=== PATIENT | male | born 1985 | race Caucasian/White ===

== ENCOUNTER 2024-06-02 00:43 | Emergency (ER) | payer BC, SELFPAY ==
[2024-06-02 00:46] VITALS: BP 165/100
[2024-06-02 02:06] VITALS: BMI 30.7
[2024-06-02 02:07] VITALS: BP 141/84
[2024-06-02] MEDS: NSS 1000 IV (02:25)
[2024-06-02] MEDS: ZOFRAN 4 MG IV (02:25)
[2024-06-02 02:27] LABS: % Basophils 0.5 % (0-2); % Eosinophils 0.2 % (0-6); % Immature Granulocytes 0.6 % (0-0.5); % Lymphocytes 25.1 % (20.5-51.1); % Monocytes 14.1 % (1.7-9.3); % Neutrophils 59.5 % (42.2-75.2); Absolute Lymphocytes 1.6 10^3/uL (1.2-3.4); Absolute Monocytes 0.9 10^3/uL (0.1-0.6); Absolute Neutrophils 3.9 10^3/uL (1.4-6.5); Hematocrit 35.3 % (39.0-52.0); Hemoglobin 12.6 g/dL (13.0-18.0); Mean Corp Hgb Conc. 35.7 g/dL (33.0-37.0); Mean Corpuscular Hgb 29.6 pg (27.0-31.0); Mean Corpuscular Volume 82.9 fL (80.0-94.0); Mean Platelet Volume 9.9 fL (7.4-10.4); Nucleated Red Blood Cells % 0 % (-); Platelet Count 186 10^3/uL (130-400); Red Blood Cell Count 4.26 10^6/uL (4.70-6.10); Red Cell Dist. Width 12.5 % (11.5-14.5); White Blood Cell Count 6.5 10^3/uL (4.8-10.8)
--- NOTE | 2024-06-02 02:33 | ED.GENMED ---
History of Present Illness
<ANGELITA Guillaume (Lenka) - Last Filed: 06/02/24 02:53>
General
Chief Complaint: Dehydration Symptoms
Source: patient
Exam Limitations: none
Time Seen by Provider: 06/02/24 02:18
Nursing documentation reviewed up to this point in time: agreed with except (tested positive for COVID Sunday (05/30))
History of Present Illness
History of Present Illness:
Pt is a 38yo male with no pertinent PMHx who presents to the ED with concerns of NBNB N/V and decreased PO intake after being diagnosed with COVID x 48hrs. Pt states Sunday (05/30) he felt febrile and general malaise and tested positive for
COVID. He picked up a script for Paxlovid and since initiating it Sunday, he has not been able to keep fluids or food down. He has been able to keep the Paxlovid pill down. Also having loose watery stools, 3+ today. Endorses chest
tightness, but denies chest pain, dyspnea, or pain with inspiration. Having occasional 'heavy' productive cough and rhinorrhea. Dizziness with ambulation, no lightheadedness when sitting. States he feels agitated and anxious.
Pt denies smoking, alcohol use, or drug use.
No daily medications.
Past History
<Mary Jane Das) ANGELITA Salinas - Last Filed: 06/02/24 02:53>
Past History
ED Past Medical History: Other (perirectal abscess)
ED Past Surgical History: Other (perirectal abscess I&D 05/23/18)
Social History
Tobacco: Non-smoker
Alcohol: None
Drug: None
Personal:
Living: with family
Employment: Employed
Family History
Family History: Other (noncontributory)
Phy Exam
<ANGELITA Guillaume (Lenka) - Last Filed: 06/02/24 02:53>
General Physical Exam
General Presentation: no apparent distress
General age: appears stated age
General Skin: warm and dry
General Habitus: normal
General Mental: anxious and tearful
General Hydration: appears well hydrated
ENT Exam
ENT Exam: TM's normal, pharynx normal, neck supple and lymphnodes (nontender, non-palpable)
Eye Exam
Eye Exam: conjunctiva normal
Cardiovascular Exam
Cardiovascular Exam: regular rate/rhythm, no edema, no gallop, no murmur and normal peripheral pulses
Pulmonary Exam
Pulmonary Exam: lungs clear, no respiratory distress, no rales, chest non tender, no rhonchi and no wheezing
Gastrointestinal Exam
Gastrointestinal Exam: normal bowel sounds, non tender, soft and non distended
Neurological Exam
Neurological Exam: alert, oriented x3 and speech normal
Course
<Mary Jane Salinas (Lenka)[facility] - Last Filed: 06/02/24 02:53>
Orders/Labs/Results
Orders:
Orders
06/02/24 02:19
0.9% Sodium Chloride 1000 ml [Nss] 1,000 ml IV BOLUS
Ondansetron Injectable [Zofran] 4 mg IV NOW STA
06/02/24 02:21
CMP [Comprehensive Metabolic Panel] Urgent
Complete Blood Count/With Diff Urgent
06/02/24 02:25
CXR2 [CR Chest - 2 Views ] Urgent
Comment:
Reason For Exam: covid +
06/02/24 03:09
Lorazepam [Ativan] 0.5 mg PO NOW STA
06/02/24 03:20
Azithromycin [Zithromax] 500 mg PO NOW STA
Abnormal Lab Results
06/02/24
02:21
RBC 4.26 L 10^6/uL
(4.70-6.10)
Hgb 12.6 L g/dL
(13.0-18.0)
Hct 35.3 L %
(39.0-52.0)
Absolute Monos (auto) 0.9 H 10^3/uL
(0.1-0.6)
Immature Gran % 0.6 H %
(0-0.5)
Monocytes % 14.1 H %
(1.7-9.3)
Sodium 133 L mmol/L
(135-145)
Chloride 97 L mmol/L
(98-107)
06/02/24 02:21
06/02/24 02:21
Vital Signs
Initial and Last Documented VS:
Initial Vital Signs
Temp Pulse Resp BP Pulse Ox
98 F 80 24 165/100 100
06/02/24 00:46 06/02/24 00:46 06/02/24 00:46 06/02/24 00:46 06/02/24 00:46
Last Documented Vital Signs
Temp Pulse Resp BP Pulse Ox
98 F 70 18 141/84 99
06/02/24 00:46 06/02/24 02:07 06/02/24 02:07 06/02/24 02:07 06/02/24 02:07
<Denis Webster, DO - Last Filed: 06/02/24 03:27>
Orders/Labs/Results
Orders:
Orders
06/02/24 02:19
0.9% Sodium Chloride 1000 ml [Nss] 1,000 ml IV BOLUS
Ondansetron Injectable [Zofran] 4 mg IV NOW STA
06/02/24 02:21
CMP [Comprehensive Metabolic Panel] Urgent
Complete Blood Count/With Diff Urgent
06/02/24 02:25
CXR2 [CR Chest - 2 Views ] Urgent
Comment:
Reason For Exam: covid +
06/02/24 03:09
Lorazepam [Ativan] 0.5 mg PO NOW STA
06/02/24 03:20
Azithromycin [Zithromax] 500 mg PO NOW STA
Abnormal Lab Results
06/02/24
02:21
RBC 4.26 L 10^6/uL
(4.70-6.10)
Hgb 12.6 L g/dL
(13.0-18.0)
Hct 35.3 L %
(39.0-52.0)
Absolute Monos (auto) 0.9 H 10^3/uL
(0.1-0.6)
Immature Gran % 0.6 H %
(0-0.5)
Monocytes % 14.1 H %
(1.7-9.3)
Sodium 133 L mmol/L
(135-145)
Chloride 97 L mmol/L
(98-107)
06/02/24 02:21
06/02/24 02:21
Vital Signs
Initial and Last Documented VS:
Initial Vital Signs
Temp Pulse Resp BP Pulse Ox
98 F 80 24 165/100 100
06/02/24 00:46 06/02/24 00:46 06/02/24 00:46 06/02/24 00:46 06/02/24 00:46
Last Documented Vital Signs
Temp Pulse Resp BP Pulse Ox
98 F 70 18 141/84 99
06/02/24 00:46 06/02/24 02:07 06/02/24 02:07 06/02/24 02:07 06/02/24 02:07
<ANGELITA Guillaume (Lenka) - Last Filed: 06/02/24 02:53>
*Critical Care Note
Total Time (30-74mins, 75-104mins- exclusive of procedures): Not Applicable
ED Attending Note
<ANGELITA Guillaume (Lenka) - Last Filed: 06/02/24 02:53>
-
Portions of this chart may have been created with voice recognition software.� Occasional wrong word or��sound alike� substitutions may have occurred due to the inherent limitations of voice recognition software.
<Denis Webster DO - Last Filed: 06/02/24 03:27>
ED Attending Note
Patient seen and examined by attending physician: Yes
I performed the substantive portion of visit, reviewed & personally made and approve the management plan that is documented in note by myself or TYLER.: Yes
ED Attending Note:
38-year-old male presents after testing positive for COVID yesterday. Started on Paxlovid. States he has been able to keep the medicine down but has not been able to keep liquids down. He feels dehydrated. He is anxious because his was
recently diagnosed with breast cancer and has a small child at home to care for her. Patient has been having nonbloody loose stools. Patient was seen in conjunction with the PA student. I have reviewed and agree with the history and treatment
plan presented. On my independent physical exam, patient is awake, alert, and oriented x3, minimal acute distress. Heart is regular rate rhythm. Lungs are clear to auscultation bilaterally without wheezes rales or rhonchi. Abdomen is soft and
nontender. Chest x-ray shows possibility of a right infiltrate. Will start on azithromycin.
Discharge Plan
Departure
Patient Disposition: Home (Routine Discharge)
Date of Disposition: 06/02/24
Time of Disposition: 03:21
Patient with high blood pressure during this ER visit?: Yes
Condition: Good
Discharge Problem:
COVID-19, Pneumonia
Instructions: Viral Syndrome (DC), COVID-19 ED, BLOOD PRESSURE, Dehydration, Adult (DC)
Prescriptions:
New
azithromycin 250 mg tablet
250 mg PO DAILY 4 Days Qty: 4 0RF
metoclopramide HCl [Reglan] 10 mg tablet
10 mg PO ACHS PRN (Reason: nausea and vomiting) Qty: 10 0RF
Referrals:
Omar Moreau MD [Family Provider] -
Activity Restrictions/Additional Instructions:
Your prescriptions were transmitted to the pharmacy you requested.
It was a pleasure meeting you and taking part in your care. We hope for your continued healing and wellness.
Please read discharge instructions in their entirety. However, they are for general education and may not describe your exact diagnosis at discharge. Information on your ER visit and medical conditions were discussed with you along with appropriate
follow up information...
If indicated, please take your medications as instructed and indicated on discharge paperwork.
Please schedule a follow up appointment as directed. Call to schedule an appointment
Please return to the emergency department with ANY change in, persisting, or worsening of symptoms. If any of your symptoms do not improve, or persist, or become more severe within 6-12 hours, please return to the emergency department for further
care.
Please return to the emergency department if you develop a headache, neck pain/stiffness, fever greater than 100.4F, chest pain, shortness of breath, persistent nausea, vomiting, slurred speech, difficulty walking, numbness/tingling, weakness, signs
of infection or any other symptoms that are worrisome to you.
If you have any questions or concerns please do not hesitate to call the Hospital at or E-mail me directly at [email or web address]
Interventions
Interventions:
*Risk Screen - Suicide Last Done: 06/02/24 00:46
*Neglect/Abuse Screening Last Done: 06/02/24 00:46
ED- Fall Risk Assessment Last Done: 06/02/24 02:30
*ED COVID-19 Vaccine History Last Done: 06/02/24 02:17
ED- Cardiac Assessment Last Done: 06/02/24 02:30
ED- Neurological Assessment Last Done: 06/02/24 02:30
ED- Pulmonary Assessment Last Done: 06/02/24 02:30
Discharge Date and Time
Print Language: ALBANIAN
[2024-06-02 02:46] LABS: ALT (SGPT) 40 U/L (0-50); AST (SGOT) 40 U/L (17-59); Albumin 4.6 g/dl (3.5-5.0); Alkaline Phosphatase 70 U/L (38-126); Blood Urea Nitrogen 11 mg/dl (9-20); Carbon Dioxide 27 mmol/L (22-30); Chloride 97 mmol/L (98-107); Estimated Creatinine Clearance 124 ml/min; Glucose 96 mg/dl (70-99); Sodium 133 mmol/L (135-145); Total Bilirubin 0.6 mg/dl (0.2-1.3); Total Protein 6.8 g/dl (6.3-8.2); eGFR > 60.00
[2024-06-02 03:04] VITALS: BP 130/83
[2024-06-02] MEDS: ATIVAN 0.5 MG PO (03:19)
[2024-06-02] MEDS: ZITHROMAX 500 MG PO (03:26)
== END 2024-06-02 03:32 | disposition home or self-care (01) ==
LOC: EMR 00:43
PROVIDERS: EMERGENCY PHYSICIAN Student in an Organized Health Care Education/Training Program; FAMILY PHYSICIAN Internal Medicine
DX: U07.1 COVID-19 (principal); J12.82 Pneumonia due to coronavirus disease 2019
CPT/HCPCS: 99283; 96374; 96361; 71046; 80053; 85025; 93005

== ENCOUNTER 2025-05-28 00:59 | Day surgery (SDC) | payer BC, SELFPAY ==
[2025-05-27] VITALS (10 sets, daily range): BP systolic 126–145; BP diastolic 68–86; BMI 27.8
[2025-05-27] MEDS: ZOFRAN ODT (ORALLY DISINTEGRATING) 4 MG PO (15:59)
[2025-05-27 16:16] LABS: Hematocrit 39.2 % (39.0-52.0); Hemoglobin 13.3 g/dL (13.0-18.0); Mean Corp Hgb Conc. 33.9 g/dL (33.0-37.0); Mean Corpuscular Volume 86.0 fL (80.0-94.0); Nucleated Red Blood Cells % 0 % (-); Platelet Count 189 10^3/uL (130-400); Red Cell Dist. Width 13.0 % (11.5-14.5)
[2025-05-27 16:26] LABS: ALT (SGPT) 27 U/L (0-50); AST (SGOT) 27 U/L (17-59); Albumin 4.8 g/dl (3.5-5.0); Alkaline Phosphatase 66 U/L (38-126); Blood Urea Nitrogen 13 mg/dl (9-20); Calcium 8.9 mg/dl (8.4-10.2); Carbon Dioxide 30 mmol/L (22-30); Chloride 105 mmol/L (98-107); Glucose 98 mg/dl (70-99); Lipase 53 U/L (23-300); Potassium 3.9 mmol/L (3.5-5.1); Sodium 142 mmol/L (135-145); Total Protein 7.3 g/dl (6.3-8.2); eGFR > 60.00
[2025-05-27 16:37] LABS: Troponin I < 0.012 ng/ml
[2025-05-27] MEDS: TORADOL 15 MG IV (20:30)
[2025-05-27] MEDS: NSS 1000 IV (20:30)
[2025-05-27] MEDS: PROTONIX IV 40 MG IV (20:30)
--- NOTE | 2025-05-27 20:39 | ED.GENMED ---
History of Present Illness
<Philip Lebron MD - Last Filed: 05/27/25 22:01>
General
Chief Complaint: Abdominal Pain
Source: patient
Exam Limitations: none
Time Seen by Provider: 05/27/25 19:42
Nursing documentation reviewed up to this point in time: agreed with
History of Present Illness
History of Present Illness:
Patient presents to ED secondary to persistent abdominal pain associated with nausea and vomiting, along with 1 episode of diarrhea today. Abdominal pain described as sharp, diffuse, without any alleviating or exacerbating factors. Denies fever or
chills. Denies trauma. Denies recent illness. Denies recent change in medications or diet. Denies sick contact. Denies previous history of similar symptoms. Patient smokes, but denies drinking alcohol.
Past History
<Philip Lebron MD - Last Filed: 05/27/25 22:01>
Past History
ED Past Medical History: Other (perirectal abscess)
ED Past Surgical History: Other (perirectal abscess I&D 05/23/18)
Social History
Tobacco: Non-smoker
Alcohol: None
Drug: None
Personal:
Living: with family
Employment: Employed
Family History
Family History: Other (noncontributory)
Review of Systems
<Philip Lebron MD - Last Filed: 05/27/25 22:01>
Review of Systems
Allergies reviewed?: Yes
All Other Systems: ROS reviewed and negative except as documented in HPI and ROS
Constitutional: Reports no symptoms; Denies fever
Cardiac: Reports no symptoms
ABD/GI: Reports abdominal pain, nausea, vomiting and diarrhea
Musculoskeletal: Reports no symptoms
Skin: Reports no symptoms
Neurological: Reports no symptoms
Phy Exam
<Philip Lebron MD - Last Filed: 05/27/25 22:01>
Physical Exam
Physical Exam:
Physical Exam
General: mild distress, not acutely ill. afebrile
Head: nc/at. eomi
Neck: supple. no meningeal signs.
Heart: s1/s2 regular rate and rhythm
Lungs: no acute respiratory distress. clear bilaterally
Abdomen: normal bowel sounds. moderate epigastric/RUQ tenderness to palpation
Neuro: alert and oriented x 3. no focal neurological deficits
Skin: no rash
Psychiatric: well kept. interactive and cooperative
Extremities: no edema. no calf tenderness.
Course
<Philip Lebron MD - Last Filed: 05/27/25 22:01>
Orders/Labs/Results
Orders:
Orders
05/27/25 15:56
ECG [Electrocardiogram (*1)] Urgent
Reason for Study: Chest Pain
Other Reason for Exam: epigastric pain
EKG- Treatment ONCE
05/27/25 15:58
Ondansetron Orally Disint [Zofran Odt (Orally Disintegrating)] 4 mg PO NOW STA
05/27/25 15:59
Ondansetron Orally Disint [Zofran Odt (Orally Disintegrating)] 4 mg .ROUTE .STK-MED ONE
05/27/25 16:05
Complete Blood Count/With Diff Urgent
Comprehensive Metabolic Panel Urgent
Lipase Urgent
Troponin I Urgent
05/27/25 20:23
0.9% Sodium Chloride 1000 ml [Nss] 1,000 ml IV BOLUS
Ketorolac [Toradol] 15 mg IV NOW STA
Pantoprazole [Protonix IV] 40 mg IV NOW STA
05/27/25 20:24
US Abdomen Complete/Upper Urgent
Comment:
Reason For Exam: epigastric/RUQ pain
05/27/25 20:55
HYDROmorphone [Dilaudid] 0.5 mg IV NOW STA
05/27/25 21:43
Urinalysis Reflex To Culture Urgent
Date Specimen was Collected: 05/27/25
Time Specimen was Collected: 21:42
Urine Microscopic Reflex Cult Urgent
05/27/25 22:12
CT Abd/pelvis W Iv Cont Urgent
Comment:
Reason For Exam: right sided abdominal pain
05/27/25 22:20
HYDROmorphone [Dilaudid] 0.5 mg IV NOW STA
05/27/25 23:47
Piperacillin/Tazo 4.5 Gram [Zosyn] 4.5 gram in 100 ml IV NOW
05/27/25 23:56
HYDROmorphone [Dilaudid] 1 mg IV NOW STA
05/27/25 23:57
Lactated Ringers [Lr] 1,000 ml IV BOLUS
Abnormal Lab Results
05/27/25 05/27/25
16:05 21:43
RBC 4.56 L 10^6/uL
(4.70-6.10)
Absolute Neuts (auto) 6.8 H 10^3/uL
(1.4-6.5)
Ur Occult Blood Reflex 1+ A
(Negative)
Urine RBC 7-10 A /HPF
(0-2)
Urine Bacteria (Reflex) Few A
(Negative)
Urine Albumin (Reflex) 1+ A
(Neg - Trace)
05/27/25 16:05
05/27/25 16:05
Vital Signs
Initial and Last Documented VS:
Initial Vital Signs
Temp Pulse Resp BP Pulse Ox
97.4 F 68 16 141/86 100
05/27/25 15:54 05/27/25 15:54 05/27/25 15:54 05/27/25 15:54 05/27/25 15:54
Last Documented Vital Signs
Temp Pulse Resp BP Pulse Ox
97.4 F 67 18 129/76 100
05/27/25 15:54 05/27/25 22:34 05/27/25 22:34 05/27/25 22:34 05/27/25 22:34
<Kevin Ferguson, DO - Last Filed: 05/27/25 23:59>
Orders/Labs/Results
Orders:
Orders
05/27/25 15:56
ECG [Electrocardiogram (*1)] Urgent
Reason for Study: Chest Pain
Other Reason for Exam: epigastric pain
EKG- Treatment ONCE
05/27/25 15:58
Ondansetron Orally Disint [Zofran Odt (Orally Disintegrating)] 4 mg PO NOW STA
05/27/25 15:59
Ondansetron Orally Disint [Zofran Odt (Orally Disintegrating)] 4 mg .ROUTE .STK-MED ONE
05/27/25 16:05
Complete Blood Count/With Diff Urgent
Comprehensive Metabolic Panel Urgent
Lipase Urgent
Troponin I Urgent
05/27/25 20:23
0.9% Sodium Chloride 1000 ml [Nss] 1,000 ml IV BOLUS
Ketorolac [Toradol] 15 mg IV NOW STA
Pantoprazole [Protonix IV] 40 mg IV NOW STA
05/27/25 20:24
US Abdomen Complete/Upper Urgent
Comment:
Reason For Exam: epigastric/RUQ pain
05/27/25 20:55
HYDROmorphone [Dilaudid] 0.5 mg IV NOW STA
05/27/25 21:43
Urinalysis Reflex To Culture Urgent
Date Specimen was Collected: 05/27/25
Time Specimen was Collected: 21:42
Urine Microscopic Reflex Cult Urgent
05/27/25 22:12
CT Abd/pelvis W Iv Cont Urgent
Comment:
Reason For Exam: right sided abdominal pain
05/27/25 22:20
HYDROmorphone [Dilaudid] 0.5 mg IV NOW STA
05/27/25 23:47
Piperacillin/Tazo 4.5 Gram [Zosyn] 4.5 gram in 100 ml IV NOW
05/27/25 23:56
HYDROmorphone [Dilaudid] 1 mg IV NOW STA
05/27/25 23:57
Lactated Ringers [Lr] 1,000 ml IV BOLUS
Abnormal Lab Results
05/27/25 05/27/25
16:05 21:43
RBC 4.56 L 10^6/uL
(4.70-6.10)
Absolute Neuts (auto) 6.8 H 10^3/uL
(1.4-6.5)
Ur Occult Blood Reflex 1+ A
(Negative)
Urine RBC 7-10 A /HPF
(0-2)
Urine Bacteria (Reflex) Few A
(Negative)
Urine Albumin (Reflex) 1+ A
(Neg - Trace)
05/27/25 16:05
05/27/25 16:05
Vital Signs
Initial and Last Documented VS:
Initial Vital Signs
Temp Pulse Resp BP Pulse Ox
97.4 F 68 16 141/86 100
05/27/25 15:54 05/27/25 15:54 05/27/25 15:54 05/27/25 15:54 05/27/25 15:54
Last Documented Vital Signs
Temp Pulse Resp BP Pulse Ox
97.4 F 67 18 129/76 100
05/27/25 15:54 05/27/25 22:34 05/27/25 22:34 05/27/25 22:34 05/27/25 22:34
<Philip Lebron MD - Last Filed: 05/27/25 22:01>
MDM/Problems Addressed
MDM/Problems Addressed:
US report reviewed and discussed with the patient.
<Philip Lebron MD - Last Filed: 05/27/25 22:01>
*Pulse Oximetry
SaO2: 99
Oxygen Mode of Delivery: Room air
<Kevin Ferguson DO - Last Filed: 05/27/25 23:59>
*Radiology
Radiology exam reviewed: radiology read reviewed (Ultrasound abdomen no acute findings, CT abdomen pelvis shows acute cholecystitis)
*Pulse Oximetry
Patient hypoxic: no
*Critical Care Note
Total Time (30-74mins, 75-104mins- exclusive of procedures): Not Applicable
<Kevin Ferguson DO - Last Filed: 05/27/25 23:59>
Update Note
Update Note:
CT abdomen pelvis shows acute cholecystitis, discussed with Dr. Myers, general surgery, IV lactated Ringer's ordered, Zosyn ordered admit to general surgery service, patient n.p.o. for likely cholecystectomy in a.m.
ED Attending Note
<Philip Lebron MD - Last Filed: 05/27/25 22:01>
-
Portions of this chart may have been created with voice recognition software.� Occasional wrong word or��sound alike� substitutions may have occurred due to the inherent limitations of voice recognition software.
Discharge Plan
Departure
Patient Disposition: Admit
Date of Disposition: 05/27/25
Time of Disposition: 23:55
Admit to: Med/Surg
Presentation/result/management discussed w/ accepting MD/DO: Lucia, general surgery
Patient with high blood pressure during this ER visit?: Yes
Condition: Fair
Discharge Problem:
Acute cholecystitis
Referrals:
Omar Moreau MD [Family Provider, Internal Medicine]
Interventions
Interventions:
*Risk Screen - Suicide Last Done: 05/27/25 19:49
*General Assessment Last Done: 05/27/25 19:49
*Neglect/Abuse Screening Last Done: 05/27/25 19:49
*ED- Fall Risk Assessment Last Done: 05/27/25 19:49
*ED COVID-19 Vaccine History Last Done: 05/27/25 19:49
KQ-Otviyf-Ytqhvgoeuj Assessment Last Done: 05/27/25 19:51
Discharge Date and Time
Print Language: GU[place]EMAL[place]
[2025-05-27] MEDS: DILAUDID 0.5 MG IV ×2 (21:38→22:31)
[2025-05-27 22:14] LABS: Urine Character Clear (Clear)
[2025-05-27 22:48] LABS: Urine Squamous Cell 0-2 /LPF (Few); Urine Urothelial Cell 0-2 /LPF (FEW)
[2025-05-28] VITALS (14 sets, daily range): BP systolic 95–133; BP diastolic 55–72; BMI 27.0
[2025-05-28] MEDS: DILAUDID 1 MG IV ×6 (00:09→10:36)
[2025-05-28] MEDS: ZOSYN 100 IV (00:09)
[2025-05-28] MEDS: TYLENOL 1000 MG PO (00:23)
--- NOTE | 2025-05-28 00:44 | HPS.HSE ---
Addendum entered and electronically signed by Nestor Myers MD 05/28/25 10:19:
Patient seen and examined independently of admitting nurse practitioner. Agree with documented admission H&P with additions noted here.
HPI: 39-year-old male who is in his usual baseline state of health until yesterday at approximately 10 to 11 AM he began developing the acute onset of epigastric abdominal pain which increased in severity began localizing to the right lower
quadrant. There was associated nausea and vomiting. Due to the persistence of his symptoms he presented to the emergency department for evaluation. He has never had any episodes like this in the past. Pain persisted this a.m. and is just so
severe and localizing to the right upper quadrant. Continued nausea and anorexia.
Denies any significant active medical history. No past abdominal surgical history.
AF VSS
NAD AAO x 3 but acutely ill-appearing and uncomfortable
ABD: Localizing right upper quadrant tenderness on palpation with voluntary guarding and positive Marcelo sign
Ultrasound negative for cholelithiasis. No gallbladder wall thickening or pericholecystic edema.
CT imaging with significant gallbladder distention and pericholecystic free fluid suggestive of cholecystitis.
Assessment/plan: 39-year-old male with probable acute cholecystitis; presumed calculus just stone not visualized on ultrasound or CT imaging. Increasing white blood cell count up to 13 today. Localizing pain in the right upper quadrant with
positive Marcelo sign this morning.
CT imaging personally reviewed as well as ultrasound. No evidence of enteritis, colitis, no evidence of pancreatitis, peptic ulcer disease, gastritis or duodenitis. Gallbladder abnormally distended with pericholecystic edema. No additional free
fluid in the abdominal cavity.
In the setting advised patient strong suspicion for acute cholecystitis and statistically speaking likely calculus given patient's young age and otherwise good medical health rather than a calculus cholecystitis. We discussed 2 treatment options
first proceeding directly with cholecystectomy the second would be further evaluation with a HIDA scan. After discussions regarding risks and benefits of both approaches patient advises that he would prefer and is in agreement to proceed with
cholecystectomy.
Laparoscopic cholecystectomy with intraoperative cholangiogram was reviewed in detail the patient including the operative technique, potential operative findings and the management, alternative treatment options, benefits and risks of surgery such
as but not limited to bleeding, infectious and wound related complications, iatrogenic injury to surrounding viscera and postcholecystectomy dietary/bowel changes. Many of the patient's concerns or questions were fully addressed and written
informed consent was obtained.
Patient is on the OR schedule for today
N.p.o. and supportive care pending OR availability
Continue Zosyn
Original Note:
Family Physician
-
Family Physician: Omar Moreau
Chief Complaint
-
Abdominal pain
History of Present Illness
Patient is a 39 year old male with no significant medical history, presents to the emergency department with complain of right upper quadrant abdominal pain. Patient states new onset abdominal pain, started at noon. Patient admits to nausea and
vomiting along with one episode of diarrhea. Abdominal pain described as sharp, rates at 8 out of 10. Reports being unable to eat since 11 am. Denies fevers, chills, recent illness. Denies recent trauma. Denies sick contacts.
In the emergency department, labs are unremarkable. Vital signs stable, patient was afebrile on triage to the emergency department. However, follow up oral temp during admission and was 102.7. Treated with Tylenol 1 g IV x 1 dose. Patient also
received IV fluids, Protonix, Zofran, Dilaudid, Toradol and initial dose of Zosyn.
Abdominal Ultrasound showed: There is no sonographic evidence of cholelithiasis, acute cholecystitis or biliary duct dilation.
Hepatosplenomegaly. There is mildly increased echogenicity of the portal triads which can be seen with hepatitis.
CT Abdomen and Pelvis w/contrast: Preliminary Vision Radiologist read showed: There is gallbladder distention, wall thickening, and pericholecystic fluid highly concerning for acute cholecystitis. No radiopaque stones seen. Mild periportal edema.
There is a scar/collapsed tract right perianal at the approximate 8 o'clock position where previously an abscess was present. No fluid collection. Large stool burden without obstruction. Appendix not definitely seen.
The Emergency provider, Dr. Lebron, discussed case with General Surgery, Dr. Myers, who accepted patient to his service. Plan: NPO after midnight, IV fluids, IV antibiotics: Zosyn 3.375, pain medication, and antiemetics.
Medical History
Past Medical History
Past Medical History: Reports None
Past Surgical History: Reports Other (Isis-rectal abscess I & D)
Social History
Tobacco: Smoker (1 pack/week)
Alcohol: None
Drug: None
Personal:
Living: With Family
Employment: Employed
Family History
Family History: Not pertinent
Allergies / Home Medications
Allergies reflects when Allergies were last updated in [facility].
Home Medications with original date entered in [facility]
Allergy/Medication List:
Patient Allergies
Allergy/AdvReac Type Severity Reaction Status Date / Time
Antihistamines Allergy tightening Verified 05/27/25 15:56
of body
promethazine Allergy tightening Verified 05/27/25 15:56
of body
Review of Systems
-
History Source: Patient
A 12 point ROS was completed and negative except as noted: Yes
Constitutional: Reports Fever
EENT: Reports No Symptoms
Respiratory: Reports No Symptoms
Cardiac: Reports No Symptoms
Abdomen/GI: Reports Abdominal Pain (Right upper quadrant), Nausea, Vomiting and Diarrhea
: Reports No Symptoms
Musculoskeletal: Reports No Symptoms
Skin: Reports No Symptoms
Neurological: Reports No Symptoms
Psych: Reports No Symptoms and Calm
Physical Exam
Vital Signs
Vital Signs
Temp Pulse Resp BP Pulse Ox
102.7 F H 81 16 133/72 96
05/28/25 00:14 05/28/25 00:14 05/28/25 00:14 05/28/25 00:14 05/28/25 00:14
Physical Exam
General: Well Nourished, Appears in Distress, Pain (right upper quadrant abdominal pain, rated at 8 out of 10), Fever (Oral temp 102.7) and Poor Appetite
HEENT: NormoCephalic and Moist mucous membranes
Respiratory: Clear and Non Labored Respirations
Cardiac: S1/S2 and Regular Rhythm
GI: Non Distended and Tender (right upper quadrant, TTP)
Skin: Warm and Dry
Neuro: Awake, Alert and Oriented
Psych: Calm and Intact Judgment/Insight
Laboratory Results
-
05/27/25 16:05
05/27/25 16:05
Laboratory Results
Total Bilirubin 0.5 mg/dl (0.2-1.3) 05/27/25 16:05
AST 27 U/L (17-59) 05/27/25 16:05
ALT 27 U/L (0-50) 05/27/25 16:05
Alkaline Phosphatase 66 U/L (38-126) 05/27/25 16:05
Troponin I < 0.012 ng/ml 05/27/25 16:05
Lipase 53 U/L (23-300) 05/27/25 16:05
Data Reviewed
-
CT Scan: Report Reviewed by me
Ultrasound: Report Reviewed by me
Lab Data: Labs Reviewed by me
Impression/Plan
-
IMPRESSION:
Patient is a 39 year old male with no significant medical history, presents to the emergency department with complain of right upper quadrant abdominal pain.
PLAN:
Acute cholecystitis
-Admit to General Surgery, Med Surg under the service of Dr. Myers
-Abdominal Ultrasound showed: There is no sonographic evidence of cholelithiasis, acute cholecystitis or biliary duct dilation.
Hepatosplenomegaly. There is mildly increased echogenicity of the portal triads which can be seen with hepatitis.
-CT Abdomen and Pelvis w/contrast: Preliminary Vision Radiologist read showed: There is gallbladder distention, wall thickening, and pericholecystic fluid highly concerning for acute cholecystitis. No radiopaque stones seen. Mild periportal edema.
There is a scar/collapsed tract right perianal at the approximate 8 o'clock position where previously an abscess was present. No fluid collection. Large stool burden without obstruction. Appendix not definitely seen.
-NPO until seen by surgery, IV fluids NSS @ 100 mls/hr
-IV antibiotics: Continued Zosyn 3.375 mg Q6H.
-Pain medication: Dilaudid
-Antiemetics: Zofran
DVT prophylaxis: SCD's
Code status: Full code
[2025-05-28] MEDS: TORADOL 15 MG IV (01:12)
[2025-05-28] MEDS: NSS 1000 IV ×2 (01:43→15:47)
[2025-05-28] MEDS: TYLENOL 650 MG PO (04:02)
[2025-05-28] MEDS: ZOSYN 50 IV ×4 (05:42→23:57)
[2025-05-28 07:26] LABS: Hematocrit 35.2 % (39.0-52.0); Hemoglobin 11.7 g/dL (13.0-18.0); Mean Corp Hgb Conc. 33.2 g/dL (33.0-37.0); Mean Corpuscular Volume 88.2 fL (80.0-94.0); Nucleated Red Blood Cells % 0 % (-); Platelet Count 157 10^3/uL (130-400); Red Cell Dist. Width 13.2 % (11.5-14.5)
[2025-05-28 07:54] LABS: Blood Urea Nitrogen 13 mg/dl (9-20); Calcium 8.1 mg/dl (8.4-10.2); Carbon Dioxide 28 mmol/L (22-30); Chloride 107 mmol/L (98-107); Estimated Creatinine Clearance 100 ml/min; Glucose 127 mg/dl (70-99); Potassium 4.2 mmol/L (3.5-5.1); Sodium 141 mmol/L (135-145); eGFR > 60.00
[2025-05-28] MEDS: ZOFRAN 4 MG IV (08:35)
--- NOTE | 2025-05-28 10:19 | W.SUR.PREOP ---
Pre-Operative Surgical Note
-
I have examined this patient prior to the performance of the scheduled procedure.
The patient's condition is unchanged from the time of the current History and
Physical and the patient is able to undergo the scheduled procedure.
--- NOTE | 2025-05-28 12:48 | W.IMMPOSTOP ---
Addendum entered and electronically signed by Nestor Myers MD 05/28/25 13:04:
#[id number]
Original Note:
Surgical Immed Post Op Note
-
Primary Surgeon: Nestor Myers MD
Assisting Surgeon: Vaibhav Figueroa
Pre-op Diagnosis: Acute cholecystitis; localized peritonitis
Post-op Diagnosis: Acalculous acute cholecystitis -gangrenous; localized peritonitis
Procedure Performed: Laparoscopic cholecystectomy with intraoperative cholangiogram
Anesthesia Type: GETA +0.25% Marcaine with epi
Specimen / Cultures: Gallbladder
Estimated Blood Loss: 22 mL
Complications: None immediate
Operative Findings: Tensely distended gallbladder encased within an acute inflammatory omental peel which was easily from gallbladder surface. Cyst needle decompression of gallbladder. Patchy gangrenous changes throughout the gallbladder
wall; particularly posterior liver bed but without perforation. No disruption of gallbladder with cholecystectomy. Intraoperative cholangiogram normal.
Opened up gallbladder on back table after removal and there was a hemorrhagic bile but no gallstone identified.
Plan: Continue Zosyn -postoperative antibiotics with total 5-day course with transition to Augmentin on discharge
Clear liquid diet initially and may advance as tolerated to low-fat
Routine supportive care
Updated patient's postoperatively via phone call
--- NOTE | 2025-05-28 14:16 | CM ---
Addendum entered by Rach Wharton 05/28/25 15:37:
Completed IA. Lives with and son in 2 story home with 2 steps at the entrance. BR on 1st floor. No Hx of DME, HC or SNF. No insecurities identified.Verified PCP, Rx and insurance.
Plan: Home with no needs. [place]
PCP: Omar Moreau
Rx: [facility]? [facility] , [place]
Original Note:
Pt seen post-op. met with patient bedside. Given OBS form and placed in chart. At this time,IA not performed due to patient's pain level
Plan:Home with needs. Will follow for any discharge needs
--- NOTE | 2025-05-28 14:36 | PTCARENOTE ---
Received back from PACU. Arowsy but easily arouable. VSS. Denies pain. x5 lap sites notes w/ surgiglue intact. Updated on clear liquid diet and plan of care.
[2025-05-28] MEDS: TORADOL 10 MG IV (15:46)
[2025-05-28] MEDS: DILAUDID 0.5 MG IV ×3 (17:04→23:58)
[2025-05-28] MEDS: LOVENOX 40 MG SC (17:04)
[2025-05-29 03:00] VITALS: BP 111/64
[2025-05-29] MEDS: DILAUDID 0.5 MG IV (04:15)
[2025-05-29] MEDS: NSS 1000 IV (04:16)
[2025-05-29] MEDS: ZOSYN 50 IV (05:37)
[2025-05-29 07:25] VITALS: BP 103/60
[2025-05-29] MEDS: NSS IV (09:12)
[2025-05-29] MEDS: TORADOL 10 MG IV (09:14)
[2025-05-29] MEDS: FLUSH (NSS) 2 FLUSH IV (09:15)
--- NOTE | 2025-05-29 10:52 | W.PN.GS2 ---
Addendum entered and electronically signed by Alexander Gonsalez MD 05/29/25 14:12:
Patient seen and examined. Agree with assessment plan as documented below.
Original Note:
Today's Communication / Plan
-
dispo planning
Assessment / Plan
-
39 yo male presenting with acalculous acute cholecystitis (gangrenous) now POD #1 lap darvin with nl IOC
AFVSS
Post op pain well managed
Tolerating diet, denies n/v. Passing flatus
Plan:
Continue IV ABX for an additional 4 days, will transition to PO upon d/c
Analgesics prn
Continue diet as tolerated
Discussed post op care
Dispo planning
Subjective Data
-
Date of Service: May 29, 2025
Pt seen and examined at bedside with Dr. Gonsalez. Denies n/v. Tolerating diet. Pain overnight, now much improved. Passing some flatus.
Objective Data
-
Intake and Output
05/28/25 05/29/25 05/30/25
06:59 06:59 06:59
Intake Total 1030 / 1030
Balance 1030 / 1030
Intake:
Oral fluids 480 / 480
IV fluids (Total) 500 / 500
IV piggybacks 50 / 50
Vital Signs
Temp Pulse Resp BP Pulse Ox
98.7 F 58 18 103/60 96
05/29/25 07:25 05/29/25 07:25 05/29/25 07:25 05/29/25 07:25 05/29/25 07:25
Lab Results
05/28/25 06:47
05/28/25 06:47
Calcium 8.1 mg/dl (8.4-10.2) L 05/28/25 06:47
Total Bilirubin 0.5 mg/dl (0.2-1.3) 05/27/25 16:05
AST 27 U/L (17-59) 05/27/25 16:05
ALT 27 U/L (0-50) 05/27/25 16:05
Alkaline Phosphatase 66 U/L (38-126) 05/27/25 16:05
Total Protein 7.3 g/dl (6.3-8.2) 05/27/25 16:05
Albumin 4.8 g/dl (3.5-5.0) 05/27/25 16:05
Physical Exam
-
NAD
ABD soft, mild incisional tenderness, nd
Incisions well approximated, intact glue, no erythema
Patient has a corona catheter: No
Patient has a central line: No
--- NOTE | 2025-05-29 10:57 | W.DS.TRANS ---
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
-
Discharge Instructions:
Discharge Diagnosis/Procedures Acalculous cholecystitis, gangrenous;
laparoscopic cholecystectomy with cholangiogram
Diet As tolerated,Low Fat
Additional Diets Smaller meals for the first few days after
surgery as abdominal bloating and distention are
common initially after surgery
Activity No strenuous activity
Additional Activity No lifting over 20 pounds for 4 weeks
postoperatively
Driving Restrictions No driving for 24 hours
Bathing Restrictions OK to Shower
Wound Care Glue at surgical sites typically peels off in 2
to 3 weeks
Instructions:
Stand-Alone Forms:
Changes to Home Medications: No
Discharge Medications:
DC Medications w/original date entered in [facility]
acetaminophen 325 mg tablet 650 mg (2 x 325 mg) PO Q4HPRN PRN mild pain #1 tab 05/29/25
amoxicillin 875 mg-potassium clavulanate 125 mg tablet 1 tab PO Q12 antibiotic #8 tabs 05/29/25
ibuprofen 200 mg tablet 400 - 600 mg (2 - 3 x 200 mg) PO Q6HPRN PRN moderate pain #1 tab 05/29/25
oxycodone 5 mg tablet 5 mg PO Q4HPRN PRN breakthrough/severe pain #8 tabs 05/29/25
Home Medication Changes
Pending Results: No
--- NOTE | 2025-05-29 11:10 | CM ---
Addendum entered by Rach Wharton 05/29/25 11:26:
Pt made aware of status change from OBS to post-surgical status.
Original Note:
Reviewed chart. Met with pt at bedside. Pt is discharged
Plan: Home no needs
[2025-05-29 11:13] VITALS: BP 104/59
== END 2025-05-29 13:41 | disposition home or self-care (01) ==
LOC: SDS 00:59
PROVIDERS: Nurse Practitioner Family; Student in an Organized Health Care Education/Training Program; ATTENDING PHYSICIAN Surgery; EMERGENCY PHYSICIAN Emergency Medicine; FAMILY PHYSICIAN Internal Medicine
DX: K81.0 Acute cholecystitis (principal); K82.A1 Gangrene of gallbladder in cholecystitis; K65.9 Peritonitis, unspecified
CPT/HCPCS: 47563; 74177; 74300; 76000; 76700; 80048; 80053; 81003; 81015; 83690; 84484; 85025; 88304; 93005; 96361; 96374; 96375; 99285; 99406; A4300; Q9967